=== PATIENT | female | born 2000 | race Caucasian/White ===

== ENCOUNTER 2021-03-16 09:25 | Emergency (ER) | payer BC ==
[2021-03-16 09:48] VITALS: BP 122/86
[2021-03-16 10:38] VITALS: PULSE 90
== END 2021-03-16 10:38 | disposition home or self-care (01) ==
LOC: COL.ER 09:25
DX: S00.93XA Contusion of unspecified part of head, initial encounter (principal); W22.01XA Walked into wall, initial encounter

== ENCOUNTER 2021-03-28 23:23 | Emergency (ER) | payer BC ==
[~2021-03-28] VITALS: Ht 175.3 cm; Wt 75.0 kg
[2021-03-29 00:48] VITALS: BP 132/86; PULSE 92
== END 2021-03-29 00:48 | disposition home or self-care (01) ==
LOC: COL.ER 23:23
DX: S09.90XA Unspecified injury of head, initial encounter (principal); W01.198A Fall on same level from slipping, tripping and stumbling with subsequent striking against other object, initial encounter; Y92.009 Unspecified place in unspecified non-institutional (private) residence as the place of occurrence of the external cause